=== PATIENT | female | born 1930 | race Caucasian/White ===

== ENCOUNTER 2018-02-08 14:46 | Emergency (ER) | payer SELFPAY ==
[~2018-02-08] VITALS: Ht 162.6 cm; Wt 64.0 kg
[2018-02-08] MEDS ORDERED: APIX5TAB4 PO (14:53)
[2018-02-08] MEDS ORDERED: SUMA25TA25 PO (14:53)
[2018-02-08] MEDS ORDERED: METO-408 PO (14:53)
[2018-02-08] MEDS ORDERED: LORA1TAB3 PO (14:53)
[2018-02-08 16:07] LABS: APPEARANCE,URINE CLOUDY (CLEAR); BILIRUBIN,URINE NEGATIVE (NEGATIVE); GLUCOSE, URINE (UA) NEGATIVE (NEGATIVE); KETONES,URINE NEGATIVE (NEGATIVE); LEUKOCYTE ESTERASE ,URINE LARGE (NEGATIVE); OCCULT BLOOD,URINE SMALL (NEGATIVE); PH,URINE 6.5 (5.0-8.0); PROTEIN,URINE NEGATIVE (NEGATIVE)
[2018-02-08 16:28] LABS: BACTERIA,URINE Many /HPF (None Seen); NITRATE,URINE POSITIVE (NEGATIVE); SQUAMOUS EPITHELIAL CELL,UR Few /LPF (None Seen); WBC,URINE 26-50 /HPF (0-5)
[2018-02-08] MEDS ORDERED: PHENAZOPYRIDINE HCL 100 MG TABLET PO ONE (16:30)
[2018-02-08] MEDS ORDERED: CIPROFLOXACIN HCL 250 MG TABLET PO ONE (16:30)
[2018-02-08 16:35] VITALS: BP 148/74
[2018-02-08] MEDS ORDERED: LEVOFLOXACIN 250 MG TABLET PO ONE (16:45)
== END 2018-02-08 17:24 | disposition home or self-care (01) ==
LOC: EMS 14:48
DX: N39.0 Urinary tract infection, site not specified (principal); Z88.8 Allergy status to other drugs, medicaments and biological substances
CPT/HCPCS: 87086; 99284